=== PATIENT | female | born 1980 | race Caucasian/White ===

== ENCOUNTER 2019-01-20 23:09 | Inpatient (IN) | payer OTHER ==
[~2019-01-20] VITALS: Ht 170.2 cm; Wt 177.5 kg
[2019-01-20 23:14] VITALS: BP 209/103
[2019-01-20 23:45] LABS: ABSOLUTE BASOPHILS 0.2 thou/uL (0.0-0.2); ABSOLUTE EOSINOPHILS 0.5 thou/uL (0.0-0.7); ABSOLUTE LYMPHOCYTES 3.7 thou/uL (0.8-5.3); ABSOLUTE NEUTROPHILS 9.6 thou/uL (1.6-8.1); BASOPHILS 1.4 %; EOSINOPHILS 3.3 %; HEMATOCRIT 40.3 % (37.0-47.0); HEMOGLOBIN 13.5 gm/dL (12.0-15.0); LYMPHOCYTES 24.8 %; MCH 29.1 pg (26.0-34.0); MCHC 33.4 g/dL (28.0-37.0); MCV 87.3 fL (80.0-100.0); MONOCYTES 6.7 %; MPV 8.8 fl. (7.2-11.1); NUCLEATED RBCS 0 /100WBC; PLATELET COUNT* 409 thou/uL (150-400); POLYS 63.8 %; RBC 4.62 mil/uL (4.20-5.00); RDW-CV 14.5 % (10.5-14.5); WBC 15.1 thou/uL (4.0-11.0)
[2019-01-20 23:50] LABS: ANION GAP 11 mmol/L (7-16); BUN 6 mg/dL (7-18); CALCIUM 8.9 mg/dL (8.5-10.1); CHLORIDE 101 mmol/L (98-107); CO2 25 mmol/L (21-32); CREATININE 0.6 mg/dL (0.6-1.3); GLUCOSE 191 mg/dL (70-99); POTASSIUM 3.6 mmol/L (3.5-5.1); SODIUM 137 mmol/L (136-145)
[2019-01-20 23:51] LABS: APTT 28.1 Seconds (25.0-31.3)
[2019-01-21] VITALS (7 sets, daily range): BP systolic 148–187; BP diastolic 83–104
[2019-01-21] LABS: ALBUMIN 3.4 g/dL (3.4-5.0); ALKALINE PHOSPHATASE 120 U/L (46-116); NT-PRO BRAIN NAT PEPTIDE 31 pg/mL (<300); SGOT 20 U/L (15-37); SGPT 35 U/L (30-65); TOTAL BILIRUBIN 0.3 mg/dL (<0.1-1.0); TOTAL PROTEIN 7.1 g/dL (6.4-8.2); TROPONIN-I LEVEL <0.06 ng/mL (<0.06)
[2019-01-21 01:36] LABS: URINE BILIRUBIN NEGATIVE (Negative); URINE BLOOD NEGATIVE (Negative); URINE CLARITY CLEAR; URINE COLOR STRAW; URINE GLUCOSE-RANDOM NEGATIVE (Negative); URINE KETONES NEGATIVE (Negative); URINE LEUKOCYTES-REFLEX NEGATIVE (Negative); URINE NITRITE-REFLEX NEGATIVE (Negative); URINE PROTEIN NEGATIVE (Negative); URINE SPECIFIC GRAVITY <= 1.005 (1.005-1.030); URINE UROBILINOGEN 0.2 E.U./dl (0.2-1.0)
[2019-01-21] MEDS ORDERED: OMEPRAZOLE 20 M20 M1 PO (03:38)
[2019-01-21 13:55] LABS: CHOLESTEROL 185 mg/dL (<200); HDL CHOLESTEROL 32 mg/dL (>40); LDL CHOLESTEROL 121 mg/dL (<100); TC:HDL 5.8 Ratio (Not establshd); TRIGLYCERIDE 161 mg/dL (<150); VLDL 32 mg/dL (<40)
[2019-01-21 13:58] LABS: SERUM ASSESSMENT Clear
--- NOTE | 2019-01-21 14:52 | 2DMMODE ---
[place] [address] 2 D/M-MODE ECHOCARDIOGRAM Name: JOANNA CHEW Room: [address] IN [facility]#: [id number] Admission: 01/21/19 Attend Phys: Sherly duron Sa Discharge: Date of : 76 Date of Service: 01/21/19 1452 Report #: [id number] THIS REPORT FOR: //name// APPROVED REPORT Study performed: 01/21/2019 11:45:53 EXAM: Comprehensive 2D, Doppler, and color-flow Echocardiogram Patient Location: In-Patient Room #: 200 Status: routine BSA: 2.70 HR: 74 bpm BP: 187/104 mmHg Rhythm: NSR Other Information Study Quality: Good Indications Hypertension/HDD 2D Dimensions IVSd: 14.36 (7-11mm) LVOT Diam: 20.73 (18-24mm) LVDd: 48.42 mm PWd: 10.86 (7-11mm) Ascending Ao: 33.89 (22-36mm) LVDs: 35.04 (25-40mm) Aortic Root: 35.32 mm Volumes Left Atrial Volume (Systole) LA ESV Index: 23.20 mL/m2 Aortic Valve AoV Peak Deejay.: 1.65 m/s AO Peak Gr.: 10.89 mmHg LVOT Max P.93 mmHg AO Mean Gr.: 5.78 mmHg LVOT Mean P.92 mmHg LVOT Max V: 1.22 m/s AO V2 VTI: 32.97 cm LVOT Mean V: 0.79 m/s ANA LILIA (VTI): 2.70 cm2 LVOT V1 VTI: 26.37 cm Mitral Valve E/A Ratio: 1.04 MV Decel. Time: 325.29 ms MV E Max Deejay.: 0.77 m/[place] [address] 2 D/M-MODE ECHOCARDIOGRAM Name: JOANNA CHEW Room: [address] IN ..#: [id number] Admission: 01/21/19 Attend Phys: Sherly duron Sa Discharge: Date of : 76 Date of Service: 01/21/19 1452 Report #: [id number] MV PHT: 94.34 ms MVA (PHT): 2.33 cm2 TDI E/Lateral E': 5.50 E/Medial E': 6.42 Medial E' Deejay.: 0.12 m/s Lateral E' Deejay.: 0.14 m/s Pulmonary Valve PV Peak Deejay.: 1.09 m/s PV Peak Gr.: 4.76 mmHg Left Ventricle The left ventricle is normal size. There is normal LV segmental wall motion. There is normal left ventricular wall thickness. Left ventricular systolic function is normal. The left ventricular ejection fraction is within the normal range. LVEF is 60%. The left ventricular diastolic function is normal. Right Ventricle The right ventricle is normal size. The right ventricular systolic function is normal. Atria The left atrium size is normal. The right atrium size is normal. Aortic Valve Mild aortic valve sclerosis. No aortic regurgitation is present. There is no aortic valvular stenosis. Mitral Valve The mitral valve is normal in structure. Trace mitral regurgitation. No evidence of mitral valve stenosis. Tricuspid Valve The tricuspid valve is normal in structure. There is no tricuspid valve regurgitation noted. Pulmonic Valve The pulmonary valve is normal in structure. There is no pulmonic valvular regurgitation. Great Vessels The aortic root is normal in size. IVC is normal in size and collapses >50% [place] [address] 2 D/M-MODE ECHOCARDIOGRAM Name: JOANNA CHEW Room: [address]#: [id number] Admission: 01/21/19 Attend Phys: Sherly duron Sa Discharge: Date of : 76 Date of Service: 01/21/19 1452 Report #: [id number] Pericardium There is no pericardial effusion. <Conclusion> The left ventricle is normal size. There is normal left ventricular wall thickness. Left ventricular systolic function is normal. The left ventricular ejection fraction is within the normal range. LVEF is 60%. The left ventricular diastolic function is normal. The right ventricle is normal size. The left atrium size is normal. Mild aortic valve sclerosis. No aortic regurgitation is present. There is no aortic valvular stenosis. The mitral valve is normal in structure. The tricuspid valve is normal in structure. IVC is normal in size and collapses >50% with inspiration. There is no pericardial effusion. There is normal LV segmental wall motion. <ELECTRONICALLY SIGNED> By: Mendez Alcantara MD, FACC 01/21/19 1452 1452 [id number] Mendez Alcantara MD, FACC /INF
--- NOTE | 2019-01-21 16:23 | EKG ---
[place] [address] ELECTROCARDIOGRAM REPORT Name: JOANNA CHEW Room: [address] ADM IN ..#: [id number] Admission: 01/21/19 Attend Phys: Sherly Felix Discharge: Date of : 76 Report #: [id number] THIS REPORT FOR: //name// [facility] ED Test Date: 2019-01-20 Test Time: 23:43:20 Pat Name: JOANNA CHEW Department: Room: [facility] Gender: F Facility Rehab Director: : 1980 Requested By: Ryan Huratdo Order Number: [id number] MD: Mendez Alcantara Measurements Intervals Ruby Rate: 83 P: 73 CT: 151 QRS: 6 QRSD: 98 T: 19 QT: 371 QTc: 436 Interpretive Statements Sinus rhythm Biatrial enlargement Probable anteroseptal infarct, old Minimal ST depression, lateral leads Artifact in lead(s) I,II,III,aVR,aVL,aVF,V1,V2 No previous ECG available for comparison Electronically Signed On 01-21-2019 16:23:06 CDT by Mendez Alcantara [email or web address] <ELECTRONICALLY SIGNED> By: Mendez Alcantara MD, FACC 01/21/19 1623 [id number] Mendez Alcantara MD, FAC /EPI
[2019-01-22] VITALS: BP 109/58
[2019-01-22 04:00] VITALS: BP 126/62
[2019-01-22 08:00] VITALS: BP 183/91
[2019-01-22 12:20] VITALS: BP 186/85
[2019-01-22 16:07] VITALS: BP 148/72
[2019-01-22 20:30] VITALS: BP 122/55
[2019-01-23 00:18] VITALS: BP 110/48
[2019-01-23 04:29] VITALS: BP 116/47
[2019-01-23 07:00] VITALS: BP 130/53
[2019-01-23] MEDS ORDERED: PEPCID20 MG PO (09:44)
[2019-01-23] MEDS ORDERED: CARVEDILOL12.5 MG PO (09:45)
[2019-01-23] MEDS ORDERED: SPIRONOLACTONE25 M1 PO (09:46)
[2019-01-23] MEDS ORDERED: GLUCOPHAGE500 MG PO (10:05)
[2019-01-23 10:21] VITALS: BP 130/53
== END 2019-01-23 11:08 | disposition home or self-care (01) | DRG 305 ==
LOC: M.ERS 23:09 → M.2W 01-21 → M.TBA-ER 01-21 → M.2W 01-21 03:15
PROVIDERS: Family Medicine; Internal Medicine; Registered Nurse; ADMIT Family Medicine
DX: I16.0 Hypertensive urgency (principal); Z68.44 Body mass index [BMI] 60.0-69.9, adult; I10 Essential (primary) hypertension; R07.9 Chest pain, unspecified; R73.9 Hyperglycemia, unspecified; E66.01 Morbid (severe) obesity due to excess calories; R51 Headache; D72.829 Elevated white blood cell count, unspecified; E78.5 Hyperlipidemia, unspecified; Z23 Encounter for immunization; Z90.710 Acquired absence of both cervix and uterus; Z82.49 Family history of ischemic heart disease and other diseases of the circulatory system

== ENCOUNTER → 2019-03-29 | Outpatient (CLI) | payer OTHER ==
[~2019-03-29] MED LIST: CARVEDILOL12.5 MG PO; GLUCOPHAGE500 MG PO; OMEPRAZOLE 20 M20 M1 PO; PEPCID20 MG PO; SPIRONOLACTONE25 M1 PO
== END ==
LOC: EDSTATUS 03-13 10:27 → M.ULTRA 08:51 → EDSTATUS 09:00
DX: K76.0 Fatty (change of) liver, not elsewhere classified (principal); E11.9 Type 2 diabetes mellitus without complications; I10 Essential (primary) hypertension; F33.1 Major depressive disorder, recurrent, moderate